=== PATIENT | male | born 1960 | race Caucasian/White ===

== ENCOUNTER 2019-10-05 10:43 | Emergency (ER) | payer MEDICAID, SELFPAY ==
[2019-10-05 11:04] VITALS: BP 202/113; PULSE 78; RESP 20; TEMP 36.4; O2SAT 98; BMI 29.8
--- NOTE | 2019-10-05 11:11 | CT_ITS ---
PROCEDURE: CT HEAD/BRAIN WO CON CLINICAL INDICATION: DIZZINESS Dizziness with nausea. Palpable abnormality on left side of head he COMPARISON: No exams were available for comparison TECHNIQUE: Axial images obtained. All CT scans at the facility use one or more dose reduction, viz: automated exposure control, ma/kV adjustment per patient size (including targeted exams where dose is matched to indication, i.e. head), or iterative reconstruction technique. FINDINGS: No midline shift, mass effect, intracranial hemorrhage, hydrocephalus, or extra-axial fluid collection is evident. There is a partially calcified subcutaneous soft tissue mass along the left parietal region of the scalp measuring 3 cm. The calvarium has an unremarkable appearance. No mastoid effusion. There is a small air-fluid level in the right maxillary sinus with mucosal thickening of the right maxillary sinus and complete opacification of the left maxillary sinus. Near complete opacification of the ethmoid sinuses extending into the right frontal sinus. Mild mucosal thickening of the sphenoid sinus.. IMPRESSION: 1. No acute intracranial findings. 2. Sinusitis. 3. Partially calcified left scalp nodule at 3 cm. Dermatologic correlation required Dictated by: Lucian Stacy MD 10/05/2019 12:13 Electronically signed by Lucian Stacy MD in [place] 10/05/2019 12:13
--- NOTE | 2019-10-05 11:11 | XR_ITS ---
PROCEDURE: XR CHEST 2V CLINICAL HISTORY: DIZZINESS COMPARISON: No exams were available for comparison FINDINGS: The cardiomediastinal silhouette and pulmonary vascularity are within normal limits. The lungs are clear without infiltrates, suspicious nodules, or pleural effusions. Small hiatal hernia noted. No acute bony findings. IMPRESSION: Hiatal hernia otherwise negative Dictated by: Lucian Stacy MD 10/05/2019 12:18 Electronically signed by Lucian Stacy MD in [place] 10/05/2019 12:18
--- NOTE | 2019-10-05 11:13 | CT_ITS ---
PROCEDURE: CT ABDOMEN PELVIS WO CON CLINICAL INDICATION: DIZZINESS, NAUSEA, BLOATING Nausea, bloating COMPARISON: No exams were available for comparison TECHNIQUE: Axial images obtained with sagittal and coronal reformats. All CT scans at the facility use one or more dose reduction, viz: automated exposure control, ma/kV adjustment per patient size (including targeted exams where dose is matched to indication, i.e. head), or iterative reconstruction technique. FINDINGS: LOWER THORAX: There are mild atelectatic changes in the right lung base. There is a small to medium-sized hiatal hernia with thickening of the GE junction. ABDOMEN & PELVIS: The liver, gallbladder, spleen, adrenal glands, and pancreas have an unremarkable unenhanced appearance. There is a 3 cm exophytic right renal cyst. Nonobstructing stones are present in the mid polar region left kidney measuring 2 mm. There is minimal prominence of the renal pelvicaliceal system on both sides and may be related to parapelvic renal cysts. No ureteral calculi. There is a small umbilical hernia which contains fat. No evidence of appendicitis, intestinal obstruction, or free air. There are scattered colonic diverticula of the descending and sigmoid colon. No acute bony findings. IMPRESSION: 1. No acute abdominal or pelvic findings. 2. Small to medium-sized hiatal hernia. 3. Bilateral renal cysts with nonobstructing left nephrolithiasis. 4. Colonic diverticulosis. No evidence of diverticulitis Dictated by: Lucian Stacy MD 10/05/2019 12:17 Electronically signed by Lucian Stacy MD in [place] 10/05/2019 12:17
[2019-10-05 11:29] LABS: Microscopic, Urine URINE MICROSCOPIC (MICROSCOPIC)
[2019-10-05 11:32] LABS: Basophils # 0.1 K/mm3 (0-0.2); Chloride 101 mmol/L (98-107); Eosinophils # 0.5 K/mm3 (0.0-0.4); Eosinophils % 4.1 % (0.1-12.0); Hematocrit 41.2 % (42.0-52.0); Hemoglobin 13.6 g/dL (14.1-18.0); Lymphocytes # 2.3 K/mm3 (0.7-4.5); Mean Corpuscular HGB Conc 33.1 g/dL (31.8-35.4); Mean Corpuscular Hemoglobin 27.4 pg (27.0-31.2); Mean Corpuscular Volume 82.9 fl (80-94); Mean Platelet Volume 8.8 fl (7.4-10.4); Monocytes # 0.6 K/mm3 (0.1-1.0); Monocytes % 5.4 % (1.7-9.3); Neutrophils # 7.6 K/mm3 (1.8-7.8); Neutrophils % 68.5 % (37.0-80.0); Platelet Count 203 K/mm3 (142-424); Red Blood Count 4.97 M/mm3 (4.60-6.20); Red Cell Distribution Width 14.3 % (11.5-17.5)
[2019-10-05 11:33] LABS: Potassium 3.5 mmoL/L (3.5-5.1); Sodium 136 mmol/L (136-145)
[2019-10-05 11:34] LABS: Appearance,Urine CLEAR (Clear); Bilirubin,Urine Negative (Negative); Blood, Urine Negative (Negative); Color,Urine YELLOW (Yellow); Glucose,Urine (UA) Negative (Negative); Ketones,Urine Negative (Negative); Leukocyte Esterase,Urine Negative (Negative); Nitrate,Urine Negative (Negative); PH,Urine 7.5 (5.0-8.5); Protein,Urine Negative (Negative); Urobilinogen,Urine 0.2 EU/dl (0.2)
[2019-10-05 11:35] LABS: Alanine Aminotransferase 18 U/L (12-78); Aspartate Amino Transferase 30 U/L (17-59); Blood Urea Nitrogen 11 mg/dl (9-20); Creatinine Clearance Estimated 100 mL/min (50-200); Estimated Glomerular Filt Rate 68 ml/min (>60); GFR (African American) 82 ML/MIN (>60)
[2019-10-05 11:36] LABS: Albumin Level 4.5 g/dl (3.5-5.0); Albumin/Globulin Ratio 1.2 (1.1-1.8); Alkaline Phosphatase 86 U/L (38-126); Anion Gap 10.5 mEq/L (5-15); Bilirubin,Total 0.4 mg/dl (0.2-1.3); Calcium 8.6 mg/dl (8.4-10.2); Carbon Dioxide 28 mmol/L (22.0-30.0); Globulin 3.7 g/dL (1.3-3.2); Glucose 142 mg/dl (74-100); Total Protein,Serum 8.2 g/dl (6.3-8.2)
--- NOTE | 2019-10-05 11:36 | HMH.EDDIZZ ---
ED Disposition Clinical Impression: Vertigo, Scalp lesion Sinusitis Qualifiers: Sinusitis location: pansinusitis Chronicity: acute Recurrence: not specified as recurrent Qualified Code(s): J01.40 - Acute pansinusitis, unspecified Disposition: Home, Self-Care Condition on Discharge: Good Instructions: DI for Sinusitis Additional Instructions: use meds and see pcp and dr spencer for follow up Prescriptions: cephALEXin [Keflex 500mg Cap] 500 mg PO TID #30 cap Prescription Printed predniSONE [Prednisone 20mg Tab] 20 mg PO BID #10 tab Prescription Printed Referrals: Provider,MD Cortes [Primary Care Provider] - Filippo Spencer MD [Staff Physician] - - Critical Care Critical Care Time: No Attestation: On 10/05/19, the high probability of a clinically significant, sudden or life threatening deterioration of the following system(s) required my full and direct attention, intervention and personal management. The time I documented below is in addition to time spent performing reported procedures but includes the following listed in this critical care notation. Medical Decision Making - Medical Records Medical records reviewed: Yes: I reviewed the patient's medical records. - Fernando Inquiry Pt receiving controlled substance: No Vital Signs: 10/05/19 11:04 Temperature 97.6 F Temperature Source Oral Pulse Rate [Right Radial] 78 Respiratory Rate 20 Blood Pressure [Right Arm] 202/113 H Blood Pressure Mean [Right Arm] 142 Blood Pressure Source [Right Arm] Automatic Cuff Blood Pressure Position [Right Arm] Sitting 02 Sat by Pulse Oximetry 98 Oxygen Delivery Method Room Air - Lab Data Lab results reviewed: Yes: I reviewed the patient's lab results. Lab Results 10/05/19 11:00: Urine Color Yellow, Urine Appearance Clear, Urine pH 7.5, Ur Specific [place] 1.020, Urine Protein Negative, Urine Glucose (UA) Negative, Urine Ketones Negative, Urine Blood Negative, Urine Nitrate Negative, Urine Bilirubin Negative, Urine Urobilinogen 0.2, Ur Leukocyte Esterase Negative, Urine RBC None, Urine WBC 3-5, Ur Squamous Epith Cells 5-10, Urine Bacteria 1+ 10/05/19 11:00: WBC 11.0 H, RBC 4.97, Hgb 13.6 L, Hct 41.2 L, MCV 82.9, MCH 27.4, MCHC 33.1, RDW 14.3, Plt Count 203, MPV 8.8, Neut % (Auto) 68.5, Lymph % (Auto) 21.0, Davison % (Auto) 5.4, Eos % (Auto) 4.1, Baso % (Auto) 1.0, Neut # (Auto) 7.6, Lymph # (Auto) 2.3, Davison # (Auto) 0.6, Eos # (Auto) 0.5 H, Baso # (Auto) 0.1 10/05/19 11:00: Sodium 136, Potassium 3.5, Chloride 101, Carbon Dioxide 28, Anion Gap 10.5, BUN 11, Creatinine 1.10, Estimated Creat Clear 100, Estimated GFR 68, Est GFR ( Amer) 82, Glucose 142 H, Calcium 8.6, Total Bilirubin 0.4, AST 30, ALT 18, Alkaline Phosphatase 86, Total Protein 8.2, Albumin 4.5, Globulin 3.7 H, Albumin/Globulin Ratio 1.2 Result diagrams: 10/05/19 11:00 10/05/19 11:00 Orders (Tests/Meds): ED MEDICATIONS Discontinued Medications Generic Name Dose Route Start Last Admin Trade Name Freq PRN Reason Stop Dose Admin Sodium Chloride 500 mls @ 999 mls/hr 10/05/19 11:45 Sod Chlor 0.9% 1000ml Bag IV 10/05/19 12:15 .Q31M ELENA Sodium Chloride 1,000 mls @ 999 mls/hr 10/05/19 11:45 10/05/19 11:40 Sod Chlor 0.9% 1000ml Bag IV 10/05/19 12:45 999 mls/hr .Q1H1M ELENA Administration Ondansetron HCl 4 mg 10/05/19 11:42 10/05/19 11:42 Zofran 4mg/2ml Vial IV 10/05/19 11:43 4 mg ONCE ONE Administration - Radiology Data #1 Image(s): Chest Image Reviewed: Yes I reviewed the patient's radiology image Preliminary Findings: Abnormal (see report) - CT Data CT Scan: Head, Abdomen, Pelvis Time Received: 13:[address] Reviewed: Yes: I have viewed the radiologist's interpretation Preliminary Findings: Abnormal (see report ) Dizzy HPI - General Chief Complaint: Dizziness Stated Complaint: Dizzy Time Seen by Provider: 10/05/19 11:36 Mode of Arrival: Ambulatory Source of Information: Patient, Spou
[2019-10-05 11:55] LABS: Bacteria,Urine 1+ /lpf
--- NOTE | 2019-10-05 11:55 | PC.NURSE ---
pt in CT
--- NOTE | 2019-10-05 12:31 | PC.NURSE ---
PT AMBULATING BACK TO ROOM FROM BATHROOM AT THIS TIME
[2019-10-05 14:15] VITALS: BP 139/92; PULSE 79; RESP 16; TEMP 36.8; O2SAT 98
== END 2019-10-05 14:15 | disposition home or self-care (01) ==
PROVIDERS: Emergency Provider Emergency Medicine
DX: R42 Dizziness and giddiness (principal); J01.40 Acute pansinusitis, unspecified; L98.9 Disorder of the skin and subcutaneous tissue, unspecified
CPT/HCPCS: 70450; 71046; 74176; 80053; 81001; 85025; 96365; 96367; 96375; 99283; J2405

== ENCOUNTER → 2019-11-09 08:15 | Outpatient (CLI) | payer OTHER, SELFPAY ==
[2019-11-09 08:48] LABS: Basophils # 0.1 K/mm3 (0-0.2); Basophils % 1.2 % (0.1-2.0); Eosinophils # 0.3 K/mm3 (0.0-0.4); Eosinophils % 3.6 % (0.1-12.0); Lymphocytes # 1.7 K/mm3 (0.7-4.5); Lymphocytes % 23.5 % (10-50); Mean Corpuscular HGB Conc 32.5 g/dL (31.8-35.4); Mean Corpuscular Hemoglobin 26.3 pg (27.0-31.2); Mean Corpuscular Volume 80.9 fl (80-94); Mean Platelet Volume 8.9 fl (7.4-10.4); Monocytes # 0.5 K/mm3 (0.1-1.0); Monocytes % 6.9 % (1.7-9.3); Neutrophils # 4.8 K/mm3 (1.8-7.8); Neutrophils % 64.8 % (37.0-80.0); Platelet Count 200 K/mm3 (142-424); Red Blood Count 4.94 M/mm3 (4.60-6.20); Red Cell Distribution Width 15.2 % (11.5-17.5); White Blood Count 7.3 K/mm3 (4.8-10.8)
[2019-11-09 09:10] LABS: Chloride 103 mmol/L (98-107); Potassium 4.3 mmoL/L (3.5-5.1); Sodium 140 mmol/L (136-145)
[2019-11-09 09:13] LABS: Anion Gap 12.3 mEq/L (5-15); Blood Urea Nitrogen 15 mg/dl (9-20); Calcium 9.1 mg/dl (8.4-10.2); Carbon Dioxide 29 mmol/L (22.0-30.0); Estimated Glomerular Filt Rate 62 ml/min (>60); GFR (African American) 74 ML/MIN (>60); Glucose 104 mg/dl (74-100)
[2019-11-09 12:52] LABS: Coronavirus 19 IgG Antibody Negative (Negative); Coronavirus 19 IgM Antibody Negative (Negative)
== END ==
PROVIDERS: Visit Provider Otolaryngology
DX: Z01.818 Encounter for other preprocedural examination (principal); J01.00 Acute maxillary sinusitis, unspecified; J34.2 Deviated nasal septum
CPT/HCPCS: 36415; 80048; 85025; 86328

== ENCOUNTER 2019-11-10 09:32 | Day surgery (SDC) | payer OTHER, SELFPAY ==
[2019-11-08 10:31] VITALS: BMI 29.8
[2019-11-10] VITALS (10 sets, daily range): BP systolic 168–194; BP diastolic 75–117; PULSE 72–80; RESP 12–18; TEMP 36.5–36.8; O2SAT 91–98
--- NOTE | 2019-11-10 11:26 | P.PN_ITS ---
[facility] Anesthesia Checklist - Structural Data Admitted From: Home Planned Operative Procedure/s: nasal septoplasty Consent for Planned Operative Procedure(s) Verified: Yes - Additional verifications Anesthesia Reactions: No Hx Blood Transfusions: No Blood Transfusion Reaction: No - Airway Assessment C-Spine Mobility Assessed: Yes TMJ Mobility Assessed: Yes Dentition: Poor Dentition - Neurological Assessment Level of Consciousness: Awake, Alert, Appropriate - Anesthesia Plan Anesthesia Risk discussed: Yes Anesthesia Plan: Verified ASA Class: III Anesthesia Type: General [facility] History I have reviewed the patient's past medical history: Yes Medical History: Denies:: Cancer, Diabetes Mellitus Type 1, Diabetes Mellitus Type 2, Internal Pacemaker, MRSA, Seizures *Have you ever received a pneumonia vaccine?: No *Have you received a flu vaccine this season?: No Other Medical History: Denies: Blood Transfusion Reaction Anesthesia experience/problems:: none Other Surgeries: Yes: Other. No: Pacemaker Amputation: No Fractures: No - *Social History Last grade of school completed: 9th or 10th Smoking Status: Never smoker Alcohol Intake: never Substance Use Type: denies use *Occupational Status:: unemployed Housing: house Household Members: family *Travel in the last 8 weeks: None Family Hx:: Hyperlipidemia, Hypertension
--- NOTE | 2019-11-10 12:02 | P.PN_ITS ---
[facility] Anesthesia Record Part I Intake, IV Amount: 1,000 Estimated blood loss (mL): 0 Urine output (mL): 0 Blood Pressure: 173/95 SaO2: 91 Pulse Rate: 72 Respiratory Rate: 12 Temperature: 97.9 F Patient is:: Drowsy, Stable Stable to PACU at:: 12:00
--- NOTE | 2019-11-10 12:42 | SUR.PHASEI ---
1228-notified Jose SPARKS of elevated BP; no new orders received at this time.
--- NOTE | 2019-11-10 12:51 | P.OP_ITS ---
Date of procedure: 11/10/19 Pre-op Diagnosis:: 1. Deviated nasal septum to the left with 90% nasal airflow blockage 2. Bilateral chronic maxillary sinusitis Post-op Diagnosis:: 1.Deviated nasal septum with 90% nasal airflow blockage 2. Bilateral chronic maxillary sinusitis 3. Multiple nasal polypi Procedure performed:: Nasal Septoplasty Surgeon:: Filippo Spencer MD DRYING MACHINE TENDER:: Charly Green Anesthesia: GETA Estimated blood loss (mL): 6 Operative findings:: Same Operative note:: With the patient under general anesthesia the face was prepped and draped the eyes were protected with Steri-Strips the nose was decongested with topical cocaine and 5 cc of 2% lidocaine with epi were injected into the nasal antral fitzgerald and the nasal septum. A left hemitransfixion incision was made in the mucoperichondrial and mucoperiosteum was elevated from both sides of the nasal septum. The quadrangular cartilage was trimmed inferiorly and the maxillary crest was trimmed inferiorly. A large vomerine spur was removed and a large spur of the perpendicular plate of the ethmoid was removed. When that was done the septum could be realigned in the midline Surgicel snow was placed between the flaps and the flaps were held in the midline using transfixion and hemitransfixion chromic sutures. Using endoscopic sinus surgical techniques and instruments a right intranasal maxillary antrostomy was done and mucosal thickening was removed from the right maxillary sinus and all of the mucosal thickening was removed and that was evident on the scoping that was done. Both of the maxillary sinuses were irrigated until the returns were clear. Further examination of the nose revealed posterior nasal polyps in both ethmoid areas. Multiple nasal polyps on the right side were removed and submitted. Bleeding was stopped with cautery. Similarly the left posterior multiple nasal polyps were removed and submitted and bleeding was stopped with cautery. The ostiomeatal complexes were opened on both sides. Bacitracin ointment was placed in the nasal vestibules. A drip pad dressing was applied and the patient was sent to recovery in good general condition. Dr. Filippo Spencre Condition: stable Disposition: PACU Complications:: None
--- NOTE | 2019-11-11 05:48 | HMH.ANESII ---
[facility] Anesthesia Record Part II Discharge Time: 12:39 Destination: Surgical Day Care (OP Surgery) PACU nurse assessment reviewed?: Yes Patient Condition:: Good Anesthesia Complications:: None Swallowing reflex intact?: Yes Cyanosis?: No Blood Pressure: 171/98 Pulse Rate: 74 Temperature: 97.8 F Mental Status: Alert & Oriented Pain level:: 0 Nausea and/or vomitting:: None Intake, IV Amount: 0
[2019-11-11 05:49] VITALS: BP 171/98; PULSE 74; TEMP 36.6
== END 2019-11-10 13:30 | disposition home or self-care (01) ==
LOC: OR 09:35
PROVIDERS: PCP Emergency Medicine; Visit Provider Otolaryngology
PROC: (CPT 30520; principal; 2019-11-10 11:15)
DX: J34.2 Deviated nasal septum (principal); J32.0 Chronic maxillary sinusitis; J33.8 Other polyp of sinus; Z82.49 Family history of ischemic heart disease and other diseases of the circulatory system; Z83.438 Family history of other disorder of lipoprotein metabolism and other lipidemia
CPT/HCPCS: 30520; 96374; 96375; J2405; J2710

== ENCOUNTER 2019-11-10 14:26 | Emergency (ER) | payer OTHER, SELFPAY ==
[2019-11-10 14:38] VITALS: BP 189/114; PULSE 65; RESP 16; TEMP 36.6; O2SAT 98; BMI 29.5
--- NOTE | 2019-11-10 14:50 | HMH.EDGENADL ---
ED Disposition Clinical Impression: Epistaxis, Status post operation on nasal septum Disposition: Home, Self-Care Condition on Discharge: Good Instructions: DI for Septoplasty, DI for Nosebleed Additional Instructions: You have been evaluated for nosebleed after sinus surgery. You may take Tylenol for pain. Is Afrin 3 times daily as prescribed. Use nasal cream. Do not blow your nose or drink through a straw. Please follow-up with your surgeon as scheduled. Call the office and let them know you were seen today in the ER. Referrals: Parth Byers MD [Primary Care Provider] - Time of Disposition: 15:50 - Critical Care Critical Care Time: No Attestation: On 11/10/19, the high probability of a clinically significant, sudden or life threatening deterioration of the following system(s) required my full and direct attention, intervention and personal management. The time I documented below is in addition to time spent performing reported procedures but includes the following listed in this critical care notation. Medical Decision Making - Medical Records Medical records reviewed: Yes: I reviewed the patient's medical records. - Fernando Inquiry Pt receiving controlled substance: No Vital Signs: 11/10/19 14:38 11/10/19 15:28 11/10/19 16:02 Temperature 98 F 98 F Temperature Source Oral Oral Pulse Rate 91 H Pulse Rate [Left Radial] 65 82 Respiratory Rate 16 20 16 Blood Pressure 177/100 H Blood Pressure [Right Arm] 189/114 H 183/97 H Blood Pressure Mean [Right Arm] 139 125 Blood Pressure Source [Right Arm] Automatic Cuff Blood Pressure Position Sitting Blood Pressure Position [Right Arm] Sitting Sitting 02 Sat by Pulse Oximetry 98 96 Oxygen Delivery Method Room Air Room Air Room Air Orders (Tests/Meds): ED MEDICATIONS Discontinued Medications Generic Name Dose Route Start Last Admin Trade Name Freq PRN Reason Stop Dose Admin Ondansetron HCl 4 mg 11/10/19 14:46 11/10/19 14:48 Zofran 4mg Odt SL 11/10/19 14:47 4 mg ONCE ONE Administration Medical Decision Narrative: In summary this is a 59-year-old male presenting to the emergency department with epistaxis. Patient is overall well-appearing on arrival. He is alert and oriented. Is hypertensive at 180/110. Other vital signs are stable. My exam shows small amount of blood in the nares. No large epistaxis. No septal hematoma. Most likely diagnosis is slight oozing from the postoperative beds. I reviewed patient's op report that states that he had a septoplasty on the left and polyps removed bilaterally. Patient given 4 mg of p.o. Zofran. On reassessment, after medication he was able to tolerate food and liquids by mouth. Bleeding had mostly controlled. Recommended to continue follow-up with his surgeon and PCP as scheduled. General Adult HPI - General Chief complaint: Epistaxis Stated complaint: had surgery today bleeding Time Seen by Provider: 11/10/19 14:50 Mode of Arrival: Ambulatory Limitations: No Limitations Description of Symptoms (Recalled from ER Triage Doc. by RN): to ed per pvt car pt just left hosp after nasal surgery pt states he became worried due to blood on dressing, sore throat and dry mouth. - History of Present Illness HPI narrative: 59-year-old male presenting to the emergency department with epistaxis. He noticed it today as he was driving home from his outpatient surgery. Says that he had a few drops of blood from both sides of his nare. He had the sensation that blood was going down the back of his throat. It made him anxious and nauseous. He had a septoplasty today. Was not informed of any intraoperative complications. He has not taking any medications for pain or nausea. Denies history of frequent nosebleeds. Currently does not have headache, vision changes, sore throat, difficulty swallowing - Related Data Home Medications Medication Instructions Recorded Confirmed c
[2019-11-10 15:28] VITALS: BP 183/97; PULSE 82; RESP 20; O2SAT 96
[2019-11-10 16:02] VITALS: BP 177/100; PULSE 91; RESP 16; TEMP 36.6; O2SAT 98
== END 2019-11-10 16:04 | disposition home or self-care (01) ==
PROVIDERS: Emergency Provider Emergency Medicine; PCP Emergency Medicine
DX: R04.0 Epistaxis (principal); Z98.890 Other specified postprocedural states
CPT/HCPCS: 99282

== ENCOUNTER → 2019-11-16 14:14 | Outpatient (CLI) | payer OTHER, SELFPAY ==
[2019-11-16 14:27] LABS: Basophils # 0.1 K/mm3 (0-0.2); Basophils % 0.8 % (0.1-2.0); Eosinophils # 0.3 K/mm3 (0.0-0.4); Hematocrit 41.3 % (42.0-52.0); Hemoglobin 13.5 g/dL (14.1-18.0); Lymphocytes # 1.6 K/mm3 (0.7-4.5); Lymphocytes % 17.1 % (10-50); Mean Corpuscular HGB Conc 32.6 g/dL (31.8-35.4); Mean Corpuscular Hemoglobin 26.1 pg (27.0-31.2); Mean Corpuscular Volume 80.2 fl (80-94); Mean Platelet Volume 9.6 fl (7.4-10.4); Monocytes # 0.5 K/mm3 (0.1-1.0); Monocytes % 5.2 % (1.7-9.3); Neutrophils # 6.8 K/mm3 (1.8-7.8); Neutrophils % 73.9 % (37.0-80.0); Platelet Count 231 K/mm3 (142-424); Red Blood Count 5.15 M/mm3 (4.60-6.20); Red Cell Distribution Width 15.2 % (11.5-17.5); White Blood Count 9.2 K/mm3 (4.8-10.8)
[2019-11-16 15:32] LABS: T4 (Thyroxine) 7.7 ug/dl (5.53-11.0)
[2019-11-16 15:33] LABS: Alanine Aminotransferase 12 U/L (12-78); Albumin Level 4.4 g/dl (3.5-5.0); Albumin/Globulin Ratio 1.4 (1.1-1.8); Alkaline Phosphatase 88 U/L (38-126); Anion Gap 15.2 mEq/L (5-15); Aspartate Amino Transferase 21 U/L (17-59); Bilirubin,Total 0.3 mg/dl (0.2-1.3); Blood Urea Nitrogen 15 mg/dl (9-20); Calcium 9.2 mg/dl (8.4-10.2); Carbon Dioxide 24 mmol/L (22.0-30.0); Chloride 104 mmol/L (98-107); Chol/HDL Ratio 5.6 (1-3.5); Cholesterol 180 mg/dl (140-200); Estimated Glomerular Filt Rate 68 ml/min (>60); GFR (African American) 82 ML/MIN (>60); Globulin 3.2 g/dL (1.3-3.2); Glucose 99 mg/dl (74-100); HDL Cholesterol 32 mg/dl (40-60); Potassium 4.2 mmoL/L (3.5-5.1); Sodium 139 mmol/L (136-145); Total Protein,Serum 7.6 g/dl (6.3-8.2); Triglycerides 167 mg/dl (30-150); VLDL Cholesterol 33 mg/dL (0-40)
[2019-11-16 15:46] LABS: Thyroid Stimulating Hormone 1.07 uIU/mL (0.465-4.68)
[2019-11-18 18:00] LABS: PSA, Free 0.14 ng/mL; Prostate Specific Ag 0.6 ng/mL (0.0-4.0)
== END ==
PROVIDERS: Visit Provider Physician Assistant
DX: I10 Essential (primary) hypertension (principal); R53.83 Other fatigue; E55.9 Vitamin D deficiency, unspecified
CPT/HCPCS: 80053; 80061; 82306; 84153; 84154; 84436; 84443; 85025